=== PATIENT | female | born 1970 | race African-American/Black ===

== ENCOUNTER 2019-11-14 15:25 | Inpatient (IN) | payer MEDICAID ==
[~2019-11-14] VITALS: Ht 170.2 cm; Wt 81.8 kg
[2019-11-14 15:44] VITALS: BP 122/80
[2019-11-14] MEDS ORDERED: Albuterol ud Inhalation HHN ONE (15:45)
--- NOTE | 2019-11-14 15:46 | Emergency Room Report ---
History of Present Illness General Chief Complaint: Upper Respiratory Illness Source: Patient Present Illness HPI 49-year-old female with no significant past medical history presents with a cough for the past 2 months. She reports that there is clear phlegm and she also reports nasal congestion and shortness of breath for the past few days with exertion. Denies any fever, chest pain, sore throat, vomiting. Patient reports she has an albuterol inhaler at home but ran out. Denies any recent travel or surgery. Denies any history of DVT or PE. Denies hormone use. Denies hemoptysis. Denies leg swelling. Allergies: Coded Allergies: No Known Allergies (Verified Allergy, Mild, 06/06/07) Patient History Past Medical History: see triage record Now: No Reviewed Nursing Documentation: PMH: Agreed; PSxH: Agreed Nursing Documentation-PMH Past Medical History: No Stated History Review of Systems All Other Systems: negative except mentioned in HPI Physical Exam Vital Signs Date Time Temp Pulse Resp B/P (MAP) Pulse Ox O2 Delivery O2 Flow Rate FiO2 11/14/19 15:30 97.5 82 16 122/80 (94) 98 Sp02 EP Interpretation: reviewed, normal General Appearance: normal inspection, well appearing, no apparent distress, alert, GCS 15, non-toxic ENT: EOM grossly intact, normal pharynx, normal voice, TMs + canals normal, uvula midline Neck: normal inspection, full range of motion, supple, thyroid normal, no meningismus, no bony tend Respiratory: chest non-tender, no respiratory distress, no accessory muscle use , wheezing Cardiovascular #1: normal peripheral pulses, regular rate, rhythm Neurologic: alert, oriented x3, speech normal Psychiatric: judgement/insight normal, mood/affect normal Skin: no rash, normal color, warm/dry Lymphatic: no adenopathy Medical Decision Making PA Attestation Dr. Debbie Adelr is my supervising physician whom patient management and care has been discussed with. Diagnostic Impression: Primary Impression: Pneumonia Qualified Codes: J18.9 - Pneumonia, unspecified organism ER Course Pt. presents to the ED c/o cough for 2 months. Ddx considered but are not limited to pneumonia, bronchitis, asthma, postnasal drip, viral URI. Vital signs: are WNL, pt. is afebrile, O2 sat 98% on room air. H&PE are most consistent with pneumonia. ORDERS: Chest x-ray shows right upper lobe infiltrate suspicious for pneumonia. Labs WNL, no elevation of WBC or BNP. Influenza A/B negative. ED INTERVENTIONS: Patient given nebulizer treatment, IV Rocephin. DISPOSITION: Patient will be admitted to telemetry for further evaluation and treatment. Admitted to panel physician. Laboratory Tests Test 11/14/19 17:05 White Blood Count 9.3 K/UL (4.8-10.8) Red Blood Count 4.46 M/UL (4.20-5.40) Hemoglobin 13.6 G/DL (12.0-16.0) Hematocrit 41.9 % (37.0-47.0) Mean Corpuscular Volume 94 FL (80-99) Mean Corpuscular Hemoglobin 30.6 PG (27.0-31.0) Mean Corpuscular Hemoglobin Concent 32.5 G/DL (32.0-36.0) Red Cell Distribution Width 12.8 % (11.6-14.8) Platelet Count 218 K/UL (150-450) Mean Platelet Volume 6.7 FL (6.5-10.1) Neutrophils (%) (Auto) 61.7 % (45.0-75.0) Lymphocytes (%) (Auto) 25.9 % (20.0-45.0) Monocytes (%) (Auto) 9.5 % (1.0-10.0) Eosinophils (%) (Auto) 1.9 % (0.0-3.0) Basophils (%) (Auto) 1.0 % (0.0-2.0) Sodium Level 140 MMOL/L (136-145) Potassium Level 4.0 MMOL/L (3.5-5.1) Chloride Level 104 MMOL/L (98-107) Carbon Dioxide Level 25 MMOL/L (21-32) Anion Gap 11 mmol/L (5-15) Blood Urea Nitrogen 16 mg/dL (7-18) Creatinine 0.8 MG/DL (0.55-1.30) Estimate Glomerular Filtration Rate > 60 mL/min (>60) Glucose Level 86 MG/DL (74-106) Calcium Level 8.9 MG/DL (8.5-10.1) Total Bilirubin 0.2 MG/DL (0.2-1.0) Aspartate Amino Transferase (AST) 25 U/L (15-37) Alanine Aminotransferase (ALT) 23 U/L (12-78) Alkaline Phosphatase 65 U/L (46-116) Pro-B-Type Natriuretic Peptide 73 pg/mL (0-125) Total Protein 7.3 G/DL (6.4-8.2) Albumin 3.1 G/DL (3.4-5.0) L Globulin 4.2 g/dL Albumin/Globulin Ratio 0.7 (1.0-2.7) L Microbiology Date/Time Source Procedure Growth Status 11/14/19 17:05 Nasal Not Otherwise Specified - Final Complete 11/14/19 17:05 Nasal Not Otherwise Specified - Final Complete EKG Diagnostic Results EKG Time: 16:23 Rate: normal Rhythm: NSR ST Segments: no acute changes ASA given to the pt in ED: No PA Scribe Text This EKG was scribed by Luci Olivo PA-C. Rhythm Strip Diag. Results EP Interpretation: yes CT/MRI/US Diagnostic Results CT/MRI/US Diagnostic Results : Impression Chest x-ray, 1 view: Interpreted by radiologist: Impression: Bilateral upper lobe infiltrates left worse than right suspicious for pneumonia. Differential includes interstitial edema/CHF. Please correlate clinically. Last Vital Signs Date Time Temp Pulse Resp B/P (MAP) Pulse Ox O2 Delivery O2 Flow Rate FiO2 11/14/19 15:30 97.5 82 16 122/80 (94) 98 Disposition: ADMITTED INPATIENT Condition: Serious Scripts No Active Prescriptions or Reported Luci Thakkar PAniket Nov 14, 2019 15:46
--- NOTE | 2019-11-14 16:56 | Diagnostic Imaging Report ---
Indication: Dyspnea Comparison: None A single view chest radiograph was obtained. Findings: There are bilateral mostly reticular appearing densities in the upper lobes left worse than right suspicious for pneumonia. Please correlate clinically. Differential includes mild heart failure and CHF. Heart is mildly enlarged. Lung volumes are low. Bones are unremarkable. IMPRESSION: Bilateral upper lobe infiltrates left worse than right suspicious for pneumonia. Differential includes interstitial edema/CHF. Please correlate clinically
[2019-11-14] MEDS ORDERED: cefTRIAXone 1 GM in NS 55 ML IV SCH (17:00)
[2019-11-14 17:44] VITALS: BP 132/84
[2019-11-14 17:50] LABS: EOSINOPHILS % (AUTO) 1.9 % (0.0-3.0); HEMATOCRIT 41.9 % (37.0-47.0); HEMOGLOBIN 13.6 G/DL (12.0-16.0); LYMPHOCYTES % (AUTO) 25.9 % (20.0-45.0); MEAN CORPUSCULAR VOLUME 94 FL (80-99); MONOCYTES % (AUTO) 9.5 % (1.0-10.0); NEUTROPHILS % (AUTO) 61.7 % (45.0-75.0); PLATELET COUNT 218 K/UL (150-450); RED BLOOD COUNT 4.46 M/UL (4.20-5.40); RED CELL DISTRIBUTION WIDTH 12.8 % (11.6-14.8); WHITE BLOOD COUNT 9.3 K/UL (4.8-10.8)
[2019-11-14 17:52] LABS: ANION GAP 11 mmol/L (5-15); BLOOD UREA NITROGEN 16 mg/dL (7-18); CALCIUM 8.9 MG/DL (8.5-10.1); CARBON DIOXIDE 25 MMOL/L (21-32); CHLORIDE 104 MMOL/L (98-107); CREATININE 0.8 MG/DL (0.55-1.30); SODIUM 140 MMOL/L (136-145)
[2019-11-14 17:57] LABS: ALANINE AMINOTRANSFERASE 23 U/L (12-78); ALBUMIN 3.1 G/DL (3.4-5.0); ALBUMIN/GLOBULIN RATIO 0.7 (1.0-2.7); ALKALINE PHOSPHATASE 65 U/L (46-116); ASPARTATE AMINO TRANSFERASE 25 U/L (15-37); BILIRUBIN,TOTAL 0.2 MG/DL (0.2-1.0)
[2019-11-14 19:16] VITALS: BP 129/78
[2019-11-14 20:40] LABS: APPEARANCE,URINE CLEAR; BILIRUBIN, URINE NEGATIVE (NEGATIVE); COLOR,URINE YELLOW; GLUCOSE, URINE (UA) NEGATIVE (NEGATIVE); KETONES,URINE 1+ (NEGATIVE); LEUKOCYTE ESTERASE ,URINE 1+ (NEGATIVE); NITRITE,URINE NEGATIVE (NEGATIVE); PH,URINE 5 (4.5-8.0); PROTEIN,URINE NEGATIVE (NEGATIVE); UROBILINOGEN,URINE NORMAL MG/DL (0.0-1.0)
[2019-11-14 21:40] VITALS: BP 128/76
[2019-11-14] MEDS: Albuterol/Ipratropium 3ml neb HHN SCH (23:18)
[2019-11-15] VITALS: BP 110/60
[2019-11-15] MEDS: Albuterol/Ipratropium 3ml neb HHN SCH ×6 (03:00→22:23)
[2019-11-15 04:00] VITALS: BP 106/73
[2019-11-15] MEDS ORDERED: Solu-MEDROL 125mg Inj IVP SCH (06:00)
[2019-11-15 08:00] VITALS: BP 107/63
[2019-11-15] MEDS ORDERED: Guaifenesin/DM 10ml syrup ORAL PRN (10:11)
[2019-11-15 12:00] VITALS: BP 100/63
[2019-11-15] MEDS: Azithromycin 500 MG in NS 275 ML IV SCH (12:51)
[2019-11-15 16:00] VITALS: BP 115/69
[2019-11-15] MEDS ORDERED: cefTRIAXone 1 GM in D5W 55 ML IVPB SCH (17:00)
--- NOTE | 2019-11-15 17:29 | History and Physical Report ---
DATE OF ADMISSION: 11/14/2019 HISTORY OF PRESENT ILLNESS: This is a 49-year-old female, who came to the emergency room for having short of breath and generalized weakness and for last 1 week, the patient has been coughing, but progressively getting worse and had short of breath on exertion at home. The patient came to the emergency room and chest x-ray was showing bilateral pneumonia. The patient had history of pneumonia about 10 years ago and was treated with antibiotics. PAST MEDICAL HISTORY: Significant for: 1. The patient has blackness on both toes and finger and cold, not all the time. 2. Smoker and COPD. MEDICATIONS: She is taking albuterol inhaler. PHYSICAL EXAMINATION: GENERAL: This is a middle-aged female, currently comfortable in the bed, in no distress. VITAL SIGNS: Blood pressure is 94/98, pulse 80, respirations 18, temperature 99.5. HEENT: AT/NC. EOMI. PERRLA. NECK: Supple. No JVD. CHEST: Bilaterally scattered crackles more on the right side. ABDOMEN: Soft. Positive bowel sounds. Nontender. EXTREMITIES: No edema. No swelling. No cyanosis currently. GENITOURINARY: Deferred. LABORATORY DATA: White counts are 9.3, hemoglobin 14, hematocrit 42, platelets are 218. Chemistry panel, BUN 16, creatinine 0.8, sodium 140. Albumin was 3.1. Chest x-ray showing bilateral pneumonia. ASSESSMENT: 1. Bilateral pneumonia. 2. Acute COPD. 3. Possible rule out Raynaud disease. PLAN: We will consider Pulmonary consult. The patient was started on IV antibiotics with Rocephin, Zithromax. Continue Solu-Medrol, bronchodilator treatments. Check laboratories. Consider Pulmonary and Rheumatology consult. Dwain Brody M.D. DR: IGNACIO JOB#: [id number] CC:
[2019-11-15] MEDS: cefTRIAXone 1 GM in D5W 55 ML IVPB SCH (17:36)
--- NOTE | 2019-11-15 18:00 | Consultation ---
DATE OF CONSULTATION: 11/15/2019 INFECTIOUS DISEASE CONSULTATION CONSULTING PHYSICIAN: Shena Alcantar M.D. REFERRING PHYSICIAN: Michael Brody M.D. REASON FOR CONSULTATION: Pneumonia. HISTORY OF PRESENT ILLNESS: This is a 49-year-old lady with no significant past medical history, who comes in with fever, chills, cough, shortness of breath, and pain on coughing. She was found to have pneumonia and an Infectious Diseases consultation has been obtained for antibiotics. PAST MEDICAL HISTORY: No history of diabetes, hypertension, asthma, heart problems, or any cancers. SOCIAL HISTORY: She used to be a smoker. She does not smoke anymore. She has a history of alcohol use. No history of drug use. FAMILY HISTORY: Noncontributory. REVIEW OF SYSTEMS: RESPIRATORY: She has fever and chills. She has cough. She has shortness of breath. She has pleuritic chest pain. CARDIAC: No chest pain. No palpitations. No dizziness. No syncope. GASTROINTESTINAL: No nausea. No vomiting. No abdominal pain or diarrhea. MEDICATIONS: As an inpatient, she is on azithromycin, Robitussin, Solu-Medrol, albuterol and ipratropium, and Tylenol. ALLERGIES: No known drug allergies. PHYSICAL EXAMINATION: VITAL SIGNS: Temperature 99.5, T-max of 99.5, pulse of 80, respiratory rate 18, and blood pressure 107/63. O2 saturation of 94%. HEENT: Pupils are equally reactive to light and accommodation. Mouth appears clean without thrush. NECK: Supple. No adenopathy. No JVD. CARDIOVASCULAR: Regular rate and rhythm. No murmurs. LUNGS: Clear to auscultation bilaterally. No crackles. No wheezes. ABDOMEN: Soft and nontender. No organomegaly. EXTREMITIES: No cyanosis, no clubbing, no edema. LABORATORY AND DIAGNOSTIC DATA: White count 9.3, hemoglobin 13.6, hematocrit 41.9, MCV 94, platelet count 218,000 with neutrophils of 61%. Sodium 140, potassium 4, chloride 104, bicarb 25, BUN 16, and creatinine 0.8. Glucose 86. Calcium 8.9. Total bilirubin 0.2. AST 25, ALT 23, alkaline phosphatase 65. Total protein 7.3, albumin 3.1. UA showing 2 to 4 white cells. Nasal swab is pending. Chest x-ray is showing bilateral upper lobe infiltrates, left worse than the right, suspicious for pneumonia. ASSESSMENT: This is a 49-year-old lady with no significant past medical history, who comes in with fever, chills, cough, shortness of breath and pleuritic chest pain, and is found to have possible bilateral community-acquired pneumonia. PLAN: 1. Continue ceftriaxone and azithromycin. 2. We will order sputum for Gram stain and culture. 3. We will order followup cultures and adjust antibiotics accordingly. I would like to thank Dr. Brody for this consultation. Shena Alcantar M.D. DR: BOUCHRA JOB#: [id number] CC:
--- NOTE | 2019-11-15 19:45 | Consultation ---
DATE OF CONSULTATION: 11/15/2019 PULMONARY CONSULTATION CONSULTING PHYSICIAN: David Stevens M.D. REFERRING PHYSICIAN: Dwain Brody M.D. HISTORY OF PRESENT ILLNESS: This is a 49-year-old female who was admitted to the hospital with cough for the last several months. She reports clear phlegm production as well nasal congestion. She reports mild shortness of breath. The patient has been using albuterol at home, but ran out. There is no travel history. No history of any embolic phenomena. She denies any hormone usage or hemoptysis. PAST MEDICAL HISTORY: Notable for questionable asthma. HOME MEDICATIONS: Discussed above. ALLERGIES: None. REVIEW OF SYSTEMS: Denies any headache, hematemesis, melena, or hematochezia. PHYSICAL EXAMINATION: GENERAL: Reveals a 49-year-old female. HEENT: Unremarkable. LUNGS: Clear breath sounds bilaterally. ABDOMEN: Soft. NEUROLOGIC: Nonfocal. LABORATORY DATA: Lab testing shows normal CBC and BMP. Urinalysis is negative. IMAGING STUDIES: X-ray of the chest was obtained, which shows bilateral upper lobe infiltrates, left worse than right. IMPRESSION: 1. Suspect pneumonia. 2. Need to exclude pulmonary edema. DISCUSSION: Admit to the hospital. We will institute empiric antibiotics. Order oxygen and pulmonary hygiene. We will order 2D echo. The patient has received Solu-Medrol, which I will discontinue. We will follow carefully as fight manager. David Stevens M.D. DR: JAY JOB#: [id number] CC:
[2019-11-15 20:00] VITALS: BP 113/68
[2019-11-16] VITALS: BP 102/69
[2019-11-16] MEDS: Albuterol/Ipratropium 3ml neb HHN SCH ×6 (02:21→23:12)
[2019-11-16 04:00] VITALS: BP 100/67
--- NOTE | 2019-11-16 07:08 | Pulmonology Progress Note ---
Assessment/Plan Assessment/Plan IMPRESSION: 1. Suspect pneumonia. 2. Possible pulmonary edema. DISCUSSION: Continue empiric antibiotics. Ordered oxygen and pulmonary hygiene. Await 2D echo. I will follow carefully as concrete block plant supervisor. David Stevens M.D. Subjective Interval Events: Seen by ID; on abx Constitutional: Reports: no symptoms HEENT: Repors: no symptoms Respiratory: Reports: no symptoms Cardiovascular: Reports: no symptoms Gastrointestinal/Abdominal: Reports: no symptoms Allergies: Coded Allergies: No Known Allergies (Verified Allergy, Mild, 06/06/07) Objective Last 24 Hour Vital Signs Date Time Temp Pulse Resp B/P (MAP) Pulse Ox O2 Delivery O2 Flow Rate FiO2 11/16/19 04:00 96.8 86 17 100/67 (78) 97 11/16/19 04:00 90 11/16/19 00:00 100 11/16/19 00:00 97.9 100 17 102/69 (80) 97 11/15/19 22:23 85 18 100 Room Air 21 81 18 97 11/15/19 21:00 Room Air 11/15/19 20:00 97.9 96 20 113/68 (83) 94 11/15/19 20:00 96 11/15/19 19:39 87 18 99 Room Air 21 89 18 96 11/15/19 16:00 98.1 87 18 115/69 (84) 96 11/15/19 16:00 87 11/15/19 15:46 76 18 97 Room Air 21 72 18 94 11/15/19 12:00 98.2 80 18 100/63 (75) 93 11/15/19 12:00 73 11/15/19 11:35 74 16 99 Room Air 21 77 16 95 11/15/19 09:00 Room Air 11/15/19 08:03 80 18 98 Room Air 21 81 18 94 11/15/19 08:00 99.5 69 18 107/63 (78) 93 11/15/19 08:00 73 Intake and Output 11/15/19 11/16/19 19:00 07:00 Intake Total 810 ml 400 ml Balance 810 ml 400 ml Intake Oral 810 ml 400 ml # Voids 2 1 # Bowel Movements 2 General Appearance: no acute distress HEENT: normocephalic Respiratory/Chest: chest wall non-tender Cardiovascular: normal peripheral pulses Abdomen: normal bowel sounds Microbiology Date/Time Source Procedure Growth Status 11/14/19 19:00 Blood Blood Culture - Preliminary NO GROWTH AFTER 24 HOURS Resulted 11/14/19 18:00 Blood Blood Culture - Preliminary NO GROWTH AFTER 24 HOURS Resulted 11/14/19 17:05 Nasal Not Otherwise Specified - Final Complete 11/14/19 17:05 Nasal Not Otherwise Specified - Final Complete Current Medications Medications (Trade) Dose Ordered Sig/Colleen Route PRN Reason Start Time Stop Time Status Last Admin Dose Admin Acetaminophen (Tylenol) 650 mg Q4H PRN ORAL Mild Pain/Temp > 100.5 11/14/19 22:30 12/14/19 22:29 Albuterol/ Ipratropium (Albuterol/ Ipratropium) 3 ml Q4HRT HHN 11/14/19 23:00 11/19/19 22:59 11/15/19 22:23 Azithromycin 500 mg/Sodium Chloride 275 ml @ 275 mls/hr Q24H IV 11/15/19 12:00 11/22/19 11:59 11/15/19 12:51 Ceftriaxone Sodium 1 gm/ Dextrose 55 ml @ 110 mls/hr Q24H IVPB 11/15/19 17:00 11/22/19 16:59 11/15/19 17:36 Guaifenesin/ Dextromethorphan (Robitussin DM Syrup) 10 ml TIDPRN PRN ORAL For Cough 11/15/19 10:11 12/15/19 10:10 11/15/19 23:27 David Stevens MD Nov 16, 2019 07:08
[2019-11-16 08:00] VITALS: BP 125/79
--- NOTE | 2019-11-16 10:55 | Infectious Diseases Prog Note ---
Assessment/Plan Assessment/Plan antibiotics : ceftriaxone, azithromycin A 1. pneumonia 2. COPD P 1. continue ceftriaxone, azithromycin 2. will follow up cultures Subjective Respiratory: Reports: shortness of breath - on exertion, productive cough Gastrointestinal/Abdominal: Denies: nausea, vomiting, diarrhea Neurologic: Reports: headache - mild Allergies: Coded Allergies: No Known Allergies (Verified Allergy, Mild, 06/06/07) Objective Vital Signs Last 24 Hour Vital Signs Date Time Temp Pulse Resp B/P (MAP) Pulse Ox O2 Delivery O2 Flow Rate FiO2 11/16/19 09:00 Room Air 11/16/19 08:00 98.2 87 17 125/79 (94) 98 11/16/19 08:00 92 11/16/19 07:27 77 16 96 Room Air 21 70 14 94 11/16/19 07:24 72 14 96 Room Air 21 11/16/19 04:00 96.8 86 17 100/67 (78) 97 11/16/19 04:00 90 11/16/19 00:00 100 11/16/19 00:00 97.9 100 17 102/69 (80) 97 11/15/19 22:23 85 18 100 Room Air 21 81 18 97 11/15/19 21:00 Room Air 11/15/19 20:00 97.9 96 20 113/68 (83) 94 11/15/19 20:00 96 11/15/19 19:39 87 18 99 Room Air 21 89 18 96 11/15/19 16:00 98.1 87 18 115/69 (84) 96 11/15/19 16:00 87 11/15/19 15:46 76 18 97 Room Air 21 72 18 94 11/15/19 12:00 98.2 80 18 100/63 (75) 93 11/15/19 12:00 73 11/15/19 11:35 74 16 99 Room Air 21 77 16 95 Height (Feet): 5 Height (Inches): 7.00 Weight (Pounds): 180 Respiratory/Chest: lungs clear Cardiovascular: normal rate, regular rhythm, no gallop/murmur Abdomen: soft, non tender Extremities: no edema Microbiology Date/Time Source Procedure Growth Status 11/14/19 19:00 Blood Blood Culture - Preliminary NO GROWTH AFTER 24 HOURS Resulted 11/14/19 18:00 Blood Blood Culture - Preliminary NO GROWTH AFTER 24 HOURS Resulted 11/14/19 17:05 Nasal Not Otherwise Specified - Final Complete 11/14/19 17:05 Nasal Not Otherwise Specified - Final Complete Current Medications Medications (Trade) Dose Ordered Sig/Colleen Route PRN Reason Start Time Stop Time Status Last Admin Dose Admin Acetaminophen (Tylenol) 650 mg Q4H PRN ORAL Mild Pain/Temp > 100.5 11/14/19 22:30 12/14/19 22:29 Albuterol/ Ipratropium (Albuterol/ Ipratropium) 3 ml Q4HRT HHN 11/14/19 23:00 11/19/19 22:59 11/16/19 07:22 Azithromycin 500 mg/Sodium Chloride 275 ml @ 275 mls/hr Q24H IV 11/15/19 12:00 11/22/19 11:59 11/15/19 12:51 Ceftriaxone Sodium 1 gm/ Dextrose 55 ml @ 110 mls/hr Q24H IVPB 11/15/19 17:00 11/22/19 16:59 11/15/19 17:36 Guaifenesin/ Dextromethorphan (Robitussin DM Syrup) 10 ml TIDPRN PRN ORAL For Cough 11/15/19 10:11 12/15/19 10:10 11/15/19 23:27 Shena Alcantar MD Nov 16, 2019 10:55
[2019-11-16 12:00] VITALS: BP 158/63
[2019-11-16] MEDS: Azithromycin 500 MG in NS 275 ML IV SCH (12:31)
--- NOTE | 2019-11-16 15:45 | Progress Note ---
DATE: 11/16/2019 SUBJECTIVE: This is a 49-year-old female who came to the emergency room for having short of breath, hypoxia, was diagnosed with bilateral pneumonia. The patient was started on IV antibiotics, bronchodilator treatment. The patient is still not feeling well, still having short of breath, cough with sputum production, but her cardiac rhythm is good. The patient has no issues. The patient was transferred to medical floor. Continue IV antibiotics. Continue bronchodilator treatment. Pulmonary is on case. OBJECTIVE: VITAL SIGNS: Stable. CHEST: Bilateral decreased breath sounds. ABDOMEN: Soft. Positive bowel sounds. EXTREMITIES: CCE. NEUROLOGICAL: The patient has no focal deficit. ASSESSMENT: 1. Bilateral pneumonia. 2. Possible Raynaud syndrome. 3. Active smoker. 4. COPD. PLAN: 1. The patient is on aggressive IV antibiotic, bronchodilator treatment. 2. Continue Tylenol. 3. Waiting for Rheumatology consult for rule out Raynaud disease. 4. Discussed with the patient. 5. We will transfer to medical floor. Dwain Brody M.D. DR: IGNACIO JOB#: [id number] CC:
[2019-11-16 16:00] VITALS: BP 97/57
[2019-11-16] MEDS: cefTRIAXone 1 GM in D5W 55 ML IVPB SCH ×2 (17:00→18:40)
[2019-11-16 20:50] VITALS: BP 94/62
[2019-11-17] MEDS: Albuterol/Ipratropium 3ml neb HHN SCH ×6 (02:36→23:28)
[2019-11-17 04:00] VITALS: BP 105/67
[2019-11-17] MEDS: Guaifenesin/DM 10ml syrup ORAL PRN (04:00)
[2019-11-17 06:37] LABS: BASOPHILS % (AUTO) 0.9 % (0.0-2.0); EOSINOPHILS % (AUTO) 1.9 % (0.0-3.0); HEMATOCRIT 37.1 % (37.0-47.0); HEMOGLOBIN 12.5 G/DL (12.0-16.0); LYMPHOCYTES % (AUTO) 24.6 % (20.0-45.0); MEAN CORPUSCULAR VOLUME 92 FL (80-99); MONOCYTES % (AUTO) 10.4 % (1.0-10.0); NEUTROPHILS % (AUTO) 62.2 % (45.0-75.0); PLATELET COUNT 228 K/UL (150-450); RED BLOOD COUNT 4.03 M/UL (4.20-5.40); RED CELL DISTRIBUTION WIDTH 12.2 % (11.6-14.8); WHITE BLOOD COUNT 10.6 K/UL (4.8-10.8)
[2019-11-17 07:11] LABS: ANION GAP 10 mmol/L (5-15); BLOOD UREA NITROGEN 17 mg/dL (7-18); CARBON DIOXIDE 24 MMOL/L (21-32); CHLORIDE 106 MMOL/L (98-107); CREATININE 0.9 MG/DL (0.55-1.30); POTASSIUM 5.2 MMOL/L (3.5-5.1); SODIUM 140 MMOL/L (136-145)
[2019-11-17 07:31] VITALS: BP 114/74
--- NOTE | 2019-11-17 10:58 | Pulmonology Progress Note ---
Assessment/Plan Assessment/Plan IMPRESSION: 1. Suspect pneumonia. 2. Possible pulmonary edema. DISCUSSION: Continue empiric antibiotics. Ordered oxygen and pulmonary hygiene. Await 2D echo. I will follow carefully as pricing intern. David Stevens M.D. Subjective Interval Events: Unable to locate ECHO results; pt feeling better Constitutional: Reports: no symptoms HEENT: Repors: no symptoms Respiratory: Reports: no symptoms Cardiovascular: Reports: no symptoms Gastrointestinal/Abdominal: Reports: no symptoms Allergies: Coded Allergies: No Known Allergies (Verified Allergy, Mild, 06/06/07) Objective Last 24 Hour Vital Signs Date Time Temp Pulse Resp B/P (MAP) Pulse Ox O2 Delivery O2 Flow Rate FiO2 11/17/19 09:00 Room Air Room Air 11/17/19 08:33 77 20 98 Room Air 21 78 20 94 11/17/19 07:31 82 17 114/74 (87) 96 11/17/19 04:00 97.4 81 18 105/67 (80) 94 11/16/19 23:12 78 18 98 Room Air 21 74 18 96 11/16/19 20:50 98.4 77 16 94/62 (73) 94 11/16/19 20:12 Room Air Room Air 11/16/19 19:46 82 18 99 Room Air 21 80 18 97 11/16/19 16:00 Room Air Room Air 11/16/19 16:00 98.2 91 21 97/57 (70) 98 11/16/19 15:33 75 18 100 Room Air 21 69 18 97 11/16/19 12:00 97.9 82 21 158/63 (94) 97 11/16/19 11:02 88 18 98 Room Air 21 82 18 96 Intake and Output 11/16/19 11/17/19 19:00 07:00 Intake Total 480 ml 420 ml Balance 480 ml 420 ml Intake Oral 480 ml 420 ml # Voids 3 # Bowel Movements 2 General Appearance: no acute distress HEENT: normocephalic Respiratory/Chest: chest wall non-tender Cardiovascular: normal peripheral pulses Abdomen: normal bowel sounds Microbiology Date/Time Source Procedure Growth Status 11/14/19 19:00 Blood Blood Culture - Preliminary NO GROWTH AFTER 48 HOURS Resulted 11/14/19 18:00 Blood Blood Culture - Preliminary NO GROWTH AFTER 48 HOURS Resulted 11/16/19 15:55 Sputum Gram Stain - Final Resulted 11/16/19 15:55 Sputum Sputum Culture - Preliminary NORMAL UPPER RESPIRATORY [place] AT 24 ... Resulted 11/14/19 17:05 Nasal Not Otherwise Specified - Final Complete 11/14/19 17:05 Nasal Not Otherwise Specified - Final Complete Laboratory Tests 11/17/19 06:10: White Blood Count 10.6, Red Blood Count 4.03L, Hemoglobin 12.5, Hematocrit 37.1 , Mean Corpuscular Volume 92, Mean Corpuscular Hemoglobin 30.9, Mean Corpuscular Hemoglobin Concent 33.6, Red Cell Distribution Width 12.2, Platelet Count 228, Mean Platelet Volume 5.6L, Neutrophils (%) (Auto) 62.2, Lymphocytes ( %) (Auto) 24.6, Monocytes (%) (Auto) 10.4H, Eosinophils (%) (Auto) 1.9, Basophils (%) (Auto) 0.9, Sodium Level 140, Potassium Level 5.2H, Chloride Level 106, Carbon Dioxide Level 24, Anion Gap 10, Blood Urea Nitrogen 17, Creatinine 0.9, Estimat Glomerular Filtration Rate > 60, Glucose Level 86, Calcium Level 9.0 Current Medications Medications (Trade) Dose Ordered Sig/Colleen Route PRN Reason Start Time Stop Time Status Last Admin Dose Admin Acetaminophen (Tylenol) 650 mg Q4H PRN ORAL Mild Pain/Temp > 100.5 11/16/19 18:00 12/14/19 17:59 Albuterol/ Ipratropium (Albuterol/ Ipratropium) 3 ml Q4HRT HHN 11/16/19 19:00 11/19/19 22:59 11/17/19 07:26 Azithromycin 500 mg/Sodium Chloride 275 ml @ 275 mls/hr Q24H IV 11/17/19 12:00 11/22/19 11:59 Ceftriaxone Sodium 1 gm/ Dextrose 55 ml @ 110 mls/hr Q24H IVPB 11/16/19 18:00 11/23/19 17:59 11/16/19 18:40 Guaifenesin/ Dextromethorphan (Robitussin DM Syrup) 10 ml TIDPRN PRN ORAL For Cough 11/16/19 18:00 12/16/19 17:59 11/17/19 04:00 aDvid Stevens MD Nov 17, 2019 10:58
[2019-11-17 12:00] VITALS: BP 103/64
[2019-11-17] MEDS ORDERED: Azithromycin 500 MG in NS 275 ML IV SCH (12:00)
--- NOTE | 2019-11-17 14:02 | Infectious Diseases Prog Note ---
Assessment/Plan Assessment/Plan A 1. pneumonia 2. COPD P 1. continue ceftriaxone, azithromycin 2. will follow up cultures Subjective ROS Limited/Unobtainable: No Constitutional: Reports: no symptoms Respiratory: Reports: productive cough Gastrointestinal/Abdominal: Reports: no symptoms Genitourinary: Reports: no symptoms Allergies: Coded Allergies: No Known Allergies (Verified Allergy, Mild, 06/06/07) Objective Vital Signs Last 24 Hour Vital Signs Date Time Temp Pulse Resp B/P (MAP) Pulse Ox O2 Delivery O2 Flow Rate FiO2 11/17/19 11:01 74 20 99 Room Air 21 70 20 98 11/17/19 09:00 Room Air Room Air 11/17/19 08:33 77 20 98 Room Air 21 78 20 94 11/17/19 07:31 82 17 114/74 (87) 96 11/17/19 04:00 97.4 81 18 105/67 (80) 94 11/16/19 23:12 78 18 98 Room Air 21 74 18 96 11/16/19 20:50 98.4 77 16 94/62 (73) 94 11/16/19 20:12 Room Air Room Air 11/16/19 19:46 82 18 99 Room Air 21 80 18 97 11/16/19 16:00 Room Air Room Air 11/16/19 16:00 98.2 91 21 97/57 (70) 98 11/16/19 15:33 75 18 100 Room Air 21 69 18 97 Height (Feet): 5 Height (Inches): 7.00 Weight (Pounds): 180 General Appearance: no acute distress HEENT: mucous membranes moist Respiratory/Chest: lungs clear Cardiovascular: normal rate Abdomen: soft, non tender Extremities: no edema Neurologic/Psychiatric: alert, oriented x 3, responsive Microbiology Date/Time Source Procedure Growth Status 11/14/19 19:00 Blood Blood Culture - Preliminary NO GROWTH AFTER 48 HOURS Resulted 11/14/19 18:00 Blood Blood Culture - Preliminary NO GROWTH AFTER 48 HOURS Resulted 11/16/19 15:55 Sputum Gram Stain - Final Resulted 11/16/19 15:55 Sputum Sputum Culture - Preliminary NORMAL UPPER RESPIRATORY [place] AT 24 ... Resulted 11/14/19 17:05 Nasal Not Otherwise Specified - Final Complete 11/14/19 17:05 Nasal Not Otherwise Specified - Final Complete Laboratory Tests Test 11/17/19 06:10 White Blood Count 10.6 K/UL (4.8-10.8) Red Blood Count 4.03 M/UL (4.20-5.40) L Hemoglobin 12.5 G/DL (12.0-16.0) Hematocrit 37.1 % (37.0-47.0) Mean Corpuscular Volume 92 FL (80-99) Mean Corpuscular Hemoglobin 30.9 PG (27.0-31.0) Mean Corpuscular Hemoglobin Concent 33.6 G/DL (32.0-36.0) Red Cell Distribution Width 12.2 % (11.6-14.8) Platelet Count 228 K/UL (150-450) Mean Platelet Volume 5.6 FL (6.5-10.1) L Neutrophils (%) (Auto) 62.2 % (45.0-75.0) Lymphocytes (%) (Auto) 24.6 % (20.0-45.0) Monocytes (%) (Auto) 10.4 % (1.0-10.0) H Eosinophils (%) (Auto) 1.9 % (0.0-3.0) Basophils (%) (Auto) 0.9 % (0.0-2.0) Sodium Level 140 MMOL/L (136-145) Potassium Level 5.2 MMOL/L (3.5-5.1) H Chloride Level 106 MMOL/L (98-107) Carbon Dioxide Level 24 MMOL/L (21-32) Anion Gap 10 mmol/L (5-15) Blood Urea Nitrogen 17 mg/dL (7-18) Creatinine 0.9 MG/DL (0.55-1.30) Estimat Glomerular Filtration Rate > 60 mL/min (>60) Glucose Level 86 MG/DL (74-106) Calcium Level 9.0 MG/DL (8.5-10.1) Current Medications Medications (Trade) Dose Ordered Sig/Colleen Route PRN Reason Start Time Stop Time Status Last Admin Dose Admin Acetaminophen (Tylenol) 650 mg Q4H PRN ORAL Mild Pain/Temp > 100.5 11/16/19 18:00 12/14/19 17:59 Albuterol/ Ipratropium (Albuterol/ Ipratropium) 3 ml Q4HRT HHN 11/16/19 19:00 11/19/19 22:59 11/17/19 10:59 Azithromycin 500 mg/Sodium Chloride 275 ml @ 275 mls/hr Q24H IV 11/17/19 12:00 11/22/19 11:59 11/17/19 12:42 Ceftriaxone Sodium 1 gm/ Dextrose 55 ml @ 110 mls/hr Q24H IVPB 11/16/19 18:00 11/23/19 17:59 11/16/19 18:40 Guaifenesin/ Dextromethorphan (Robitussin DM Syrup) 10 ml TIDPRN PRN ORAL For Cough 11/16/19 18:00 12/16/19 17:59 11/17/19 04:00 Dae Valencia MD Nov 17, 2019 14:02
[2019-11-17] MEDS ORDERED: Sodium Polystyrene Sulfonate 15gm Powder ORAL SCH (16:15)
[2019-11-17 16:58] VITALS: BP 101/67
[2019-11-17] MEDS: cefTRIAXone 1 GM in D5W 55 ML IVPB SCH (17:27)
[2019-11-17 19:41] VITALS: BP 104/64
[2019-11-18] MEDS: Guaifenesin/DM 10ml syrup ORAL PRN (00:14)
[2019-11-18] MEDS: Albuterol/Ipratropium 3ml neb HHN SCH ×5 (03:01→15:16)
[2019-11-18 04:00] VITALS: BP 98/60
[2019-11-18 08:00] VITALS: BP 116/83
--- NOTE | 2019-11-18 09:02 | Pulmonology Progress Note ---
Assessment/Plan Assessment/Plan IMPRESSION: 1. Pneumonia. DISCUSSION: Continue antibiotics.ECHO normal OK to dc home David Stevens M.D. Subjective Interval Events: Feeling well; ECHO normal Constitutional: Reports: no symptoms HEENT: Repors: no symptoms Respiratory: Reports: no symptoms Cardiovascular: Reports: no symptoms Allergies: Coded Allergies: No Known Allergies (Verified Allergy, Mild, 06/06/07) Objective Last 24 Hour Vital Signs Date Time Temp Pulse Resp B/P (MAP) Pulse Ox O2 Delivery O2 Flow Rate FiO2 11/18/19 07:09 71 16 100 Room Air 21 69 16 96 11/18/19 04:00 97.0 79 18 98/60 (73) 95 11/18/19 03:02 78 18 99 Room Air 21 75 18 95 11/17/19 23:28 73 18 98 Room Air 21 71 18 96 11/17/19 21:07 Room Air Room Air 11/17/19 19:55 78 18 98 Room Air 21 70 18 97 11/17/19 19:41 97.7 82 18 104/64 (77) 96 11/17/19 16:58 98.3 85 17 101/67 (78) 95 11/17/19 15:13 76 20 99 Room Air 21 74 20 97 11/17/19 12:00 98.8 84 18 103/64 (77) 96 11/17/19 11:01 74 20 99 Room Air 21 70 20 98 Intake and Output 11/17/19 11/18/19 19:00 07:00 Intake Total 690 ml Balance 690 ml Intake Oral 360 ml IV Total 330 ml # Voids 3 General Appearance: no acute distress HEENT: normocephalic Respiratory/Chest: chest wall non-tender, lungs clear Cardiovascular: normal peripheral pulses Abdomen: normal bowel sounds Microbiology Date/Time Source Procedure Growth Status 11/16/19 15:55 Sputum Gram Stain - Final Complete 11/16/19 15:55 Sputum Sputum Culture - Final NORMAL UPPER RESPIRATORY [place] PRESENT Complete Current Medications Medications (Trade) Dose Ordered Sig/Colleen Route PRN Reason Start Time Stop Time Status Last Admin Dose Admin Acetaminophen (Tylenol) 650 mg Q4H PRN ORAL Mild Pain/Temp > 100.5 11/16/19 18:00 12/14/19 17:59 11/17/19 14:44 Albuterol/ Ipratropium (Albuterol/ Ipratropium) 3 ml Q4HRT HHN 11/16/19 19:00 11/19/19 22:59 11/18/19 06:59 Azithromycin 500 mg/Sodium Chloride 275 ml @ 275 mls/hr Q24H IV 11/17/19 12:00 11/22/19 11:59 11/17/19 12:42 Ceftriaxone Sodium 1 gm/ Dextrose 55 ml @ 110 mls/hr Q24H IVPB 11/16/19 18:00 11/23/19 17:59 11/17/19 17:27 Guaifenesin/ Dextromethorphan (Robitussin DM Syrup) 10 ml TIDPRN PRN ORAL For Cough 11/16/19 18:00 12/16/19 17:59 11/18/19 00:14 David Stevens MD Nov 18, 2019 09:02
[2019-11-18] MEDS ORDERED: ALBUTEROL2.5 MG/3 M INH (11:29)
[2019-11-18] MEDS ORDERED: nebulizer (11:31)
[2019-11-18] MEDS ORDERED: ATROVENT HFA12.9 GM IH (11:37)
[2019-11-18] MEDS ORDERED: ZITHROMAX250 MG ORAL (11:39)
[2019-11-18] MEDS ORDERED: CEFUROXIME500 MG PO (11:41)
[2019-11-18] MEDS ORDERED: SYMBICORT2 PUFF1 INH (11:43)
[2019-11-18] MEDS ORDERED: PROAIR HFA8.5 GM INH (11:49)
[2019-11-18] MEDS ORDERED: NAPROXEN500 M2 ORAL (11:50)
--- NOTE | 2019-11-18 11:50 | Infectious Diseases Prog Note ---
Assessment/Plan Assessment/Plan antibiotics : ceftriaxone, azithromycin A 1. pneumonia 2. COPD P 1. d/c ceftriaxone, azithromycin 2. start and continue po levoquin 5 more days 3. will follow up cultures Subjective Respiratory: Reports: shortness of breath - decreased, productive cough - decreased Gastrointestinal/Abdominal: Denies: nausea, vomiting, diarrhea Musculoskeletal: Reports: pain Allergies: Coded Allergies: No Known Allergies (Verified Allergy, Mild, 06/06/07) Objective Vital Signs Last 24 Hour Vital Signs Date Time Temp Pulse Resp B/P (MAP) Pulse Ox O2 Delivery O2 Flow Rate FiO2 11/18/19 10:50 80 18 100 Room Air 21 78 18 96 11/18/19 08:00 97.5 94 18 116/83 (94) 95 11/18/19 07:09 71 16 100 Room Air 21 69 16 96 11/18/19 04:00 97.0 79 18 98/60 (73) 95 11/18/19 03:02 78 18 99 Room Air 21 75 18 95 11/17/19 23:28 73 18 98 Room Air 21 71 18 96 11/17/19 21:07 Room Air Room Air 11/17/19 19:55 78 18 98 Room Air 21 70 18 97 11/17/19 19:41 97.7 82 18 104/64 (77) 96 11/17/19 16:58 98.3 85 17 101/67 (78) 95 11/17/19 15:13 76 20 99 Room Air 21 74 20 97 11/17/19 12:00 98.8 84 18 103/64 (77) 96 Height (Feet): 5 Height (Inches): 7.00 Weight (Pounds): 180 Microbiology Date/Time Source Procedure Growth Status 11/16/19 15:55 Sputum Gram Stain - Final Complete 11/16/19 15:55 Sputum Sputum Culture - Final NORMAL UPPER RESPIRATORY [place] PRESENT Complete Current Medications Medications (Trade) Dose Ordered Sig/Colleen Route PRN Reason Start Time Stop Time Status Last Admin Dose Admin Acetaminophen (Tylenol) 650 mg Q4H PRN ORAL Mild Pain/Temp > 100.5 11/16/19 18:00 12/14/19 17:59 11/17/19 14:44 Albuterol/ Ipratropium (Albuterol/ Ipratropium) 3 ml Q4HRT HHN 11/16/19 19:00 11/19/19 22:59 11/18/19 10:39 Azithromycin 500 mg/Sodium Chloride 275 ml @ 275 mls/hr Q24H IV 11/17/19 12:00 11/22/19 11:59 11/17/19 12:42 Ceftriaxone Sodium 1 gm/ Dextrose 55 ml @ 110 mls/hr Q24H IVPB 11/16/19 18:00 11/23/19 17:59 11/17/19 17:27 Guaifenesin/ Dextromethorphan (Robitussin DM Syrup) 10 ml TIDPRN PRN ORAL For Cough 11/16/19 18:00 12/16/19 17:59 11/18/19 00:14 Shena Alcantar MD Nov 18, 2019 11:50
[2019-11-18] MEDS ORDERED: Levofloxacin 500mg tab ORAL SCH (12:00)
--- NOTE | 2019-11-18 22:30 | Discharge Summary ---
DATE OF ADMISSION: 11/14/2019 DATE OF DISCHARGE: 11/18/2019 SUBJECTIVE: This is an elderly female who initially came due to pneumonia, short of breath, cough with sputum production, . The patient also p.o. antibiotics were not effective. The patient was started on IV antibiotics. Also given a dose of steroids. The patient also had a Pulmonary consult. The patient physically did better. Shortness of breath is improving. PHYSICAL EXAMINATION: VITAL SIGNS: Stable. No fever. HEENT: NAD. CHEST: Bilaterally few crackles. CARDIOVASCULAR: Regular rhythm. No gallop or murmur. ABDOMEN: Soft. Positive bowel sounds. Nontender. EXTREMITIES: No edema. GENITOURINARY: Deferred. LABORATORY EXAMINATION: The patient has no labs today. ASSESSMENT: 1. Pneumonia. 2. Acute COPD. 3. Smoker, recommended to quit smoking. DISPOSITION: The patient is going to go home with p.o. antibiotics. DIET: She is on regular diet. ACTIVITY: As tolerated. DISCHARGE MEDICATIONS: See the prescription. The patient also given prescription for Symbicort, albuterol inhaler and nebulizer treatment. Dwain Brody M.D. DR: IGNACIO JOB#: [id number] CC:
== END 2019-11-18 15:25 | disposition home or self-care (01) | DRG 139 ==
LOC: EMR 15:50 → 2E 18:39 → EDBEDREQ 21:15 → 2E 21:30 → 4E 11-16 17:26
DX: J18.9 Pneumonia, unspecified organism (principal); J44.1 Chronic obstructive pulmonary disease with (acute) exacerbation; F17.200 Nicotine dependence, unspecified, uncomplicated; I73.00 Raynaud's syndrome without gangrene
CPT/HCPCS: 36415; 71045; 80048; 80053; 81003; 83880; 85025; 86710; 87040; 87070; 87205; 93005; 93306; 94640; 94664; 96365; 96366; 99285; J7620